=== PATIENT | male | born 1995 | race African-American/Black ===

== ENCOUNTER 2017-07-21 08:48 | Emergency (ER) | payer OTHER ==
[~2017-07-21] VITALS: Ht 182.9 cm; Wt 99.0 kg
[2017-07-21 08:51] VITALS: BP 138/82
== END 2017-07-21 11:50 | disposition home or self-care (01) ==
LOC: ED 11:44
DX: H66.001 Acute suppurative otitis media without spontaneous rupture of ear drum, right ear (principal); J20.9 Acute bronchitis, unspecified
CPT/HCPCS: 71010; 99283